=== PATIENT | female | born 1955 | race African-American/Black ===

== ENCOUNTER 2017-11-13 20:23 | Inpatient (IN) | payer MEDICARE, MEDICAID ==
[2017-11-13 21:02] LABS: #Basophils 0.1 thou/uL (0.0-0.2); #Lymphocytes 0.8 thou/uL (1.20-3.40); #Monocytes 0.4 thou/uL (0.11-0.59); #Neutrophils 4.1 thou/uL (1.40-6.50); %Basophils 1.1 % (0.0-1.0); %Eosinophils 0.2 % (0.0-10.0); %Lymphocytes 15.1 % (21.0-51.0); %Monocytes 7.7 % (0.0-10.0); %Neutrophils 75.9 % (42.0-75.0); Hemoglobin 9.3 g/dL (12.0-16.0); Mean Corpuscular HGB CONC 33.7 g/dL (32.0-36.0); Mean Corpuscular Hemoglobin 28.5 pg (27.0-31.0); Mean Corpuscular Volume 84.5 fl (81.0-99.0); Mean Platelet Volume 7.8 fL (7.4-10.4); Platelet Count 142 thou/uL (130-400); RBC Distribution Width 13.8 % (11.5-14.5); Red Blood Cell (RBC) Count 3.28 mill/uL (4.20-5.40); White Blood Cell (WBC) Count 5.4 thou/uL (4.8-10.8)
[2017-11-13 21:21] LABS: ALT (SGPT) 12 U/L (8-55); AST (SGOT) 18 U/L (5-34); Albumin 3.7 g/dL (3.4-4.8); Alkaline Phosphatase 46 U/L (40-150); Anion Gap 13 mmol/L (10-20); BUN (Urea Nitrogen) 33 mg/dL (9.8-20.1); Bilirubin, Total 0.6 mg/dL (0.2-1.2); Calc. Creatinine Clearance 0 mL/min (70-130); Carbon Dioxide 21 mmol/L (23-31); Chloride 105 mmol/L (98-107); Estimated GFR-MDRD 31; Globulin 3.9 g/dL (2.4-3.5); Glucose 109 mg/dL (80-115); Potassium 3.3 mmol/L (3.5-5.1); Protein, Total 7.6 g/dL (6.0-8.3); Sodium 136 mmol/L (136-145)
--- NOTE | 2017-11-13 21:52 | RAD ---
AP VIEW CHEST: Date: 11/13/17 INDICATION: History of sore throat. COMPARISON: Prior exam dated 12/13/13. IMPRESSION: Air space opacity within the left lower lobe obscuring the left hemidiaphragm, suspicious for left lo wer lobe pneumonia. Recommend 2 view chest radiograph. Right lung is clear. Osseous structures unchan ged. POS: MYRTLE
[2017-11-14] MEDS ORDERED: Azithromycin 500 MG VIAL ONE
[2017-11-14] MEDS ORDERED: Ondansetron ODT 4 MG TAB SL PRN (04:09)
[2017-11-14] MEDS ORDERED: Acetaminophen 325 MG TAB PO PRN (04:09)
[2017-11-14] MEDS ORDERED: Ondansetron HCl/PF 4 MG/2 ML Vial IVP PRN (04:09)
[2017-11-14] MEDS ORDERED: Sodium Chloride 0.9% 1,000 ML IV SCH (04:09)
[2017-11-14 04:18] VITALS: BMI 30.7
[2017-11-14] MEDS: Potassium Chloride 20 MEQ TAB PO SCH ×2 (09:15→14:04)
[2017-11-14] MEDS: Sodium Chloride 0.9% 1,000 ML IV SCH ×2 (09:16→15:56)
[2017-11-14] MEDS ORDERED: cefTRIAXone\\ROCEPHIN 2 GM in Sodium Chloride 0.9% 100 ML IVPB SCH (10:00)
[2017-11-14 16:30] LABS: Anion Gap 7 mmol/L (10-20); BUN (Urea Nitrogen) 25 mg/dL (9.8-20.1); Calc. Creatinine Clearance 65 mL/min (70-130); Calcium 8.4 mg/dL (7.8-10.44); Carbon Dioxide 22 mmol/L (23-31); Chloride 113 mmol/L (98-107); Estimated GFR-MDRD 53; Glucose 97 mg/dL (80-115); Potassium 3.9 mmol/L (3.5-5.1); Sodium 138 mmol/L (136-145)
[2017-11-14] MEDS: cefTRIAXone\\ROCEPHIN 2 GM in Sodium Chloride 0.9% 100 ML IVPB SCH (22:13)
[2017-11-14] MEDS: Azithromycin 500 MG in Sodium Chloride 0.9% 250 ML 250 ML IVPB SCH (23:25)
[2017-11-15] MEDS: Sodium Chloride 0.9% 1,000 ML IV SCH ×3 (04:01→17:25)
[2017-11-15 04:58] LABS: #Eosinphils 0.1 thou/uL (0.0-0.7); #Monocytes 0.3 thou/uL (0.11-0.59); %Basophils 0.3 % (0.0-1.0); %Eosinophils 1.5 % (0.0-10.0); %Lymphocytes 30.1 % (21.0-51.0); %Monocytes 8.6 % (0.0-10.0); %Neutrophils 59.5 % (42.0-75.0); Mean Corpuscular HGB CONC 32.7 g/dL (32.0-36.0); Mean Corpuscular Hemoglobin 27.9 pg (27.0-31.0); Mean Corpuscular Volume 85.5 fl (81.0-99.0); Mean Platelet Volume 8.1 fL (7.4-10.4); Platelet Count 133 thou/uL (130-400); RBC Distribution Width 13.9 % (11.5-14.5); Red Blood Cell (RBC) Count 2.86 mill/uL (4.20-5.40); White Blood Cell (WBC) Count 3.3 thou/uL (4.8-10.8)
[2017-11-15 05:08] LABS: Anion Gap 9 mmol/L (10-20); BUN (Urea Nitrogen) 19 mg/dL (9.8-20.1); Calc. Creatinine Clearance 82 mL/min (70-130); Calcium 8.5 mg/dL (7.8-10.44); Carbon Dioxide 19 mmol/L (23-31); Chloride 116 mmol/L (98-107); Estimated GFR-MDRD 70; Glucose 83 mg/dL (80-115); Potassium 4.2 mmol/L (3.5-5.1); Sodium 140 mmol/L (136-145)
--- NOTE | 2017-11-15 07:38 | HP ---
DATE OF ADMISSION: 11/13/2017 CHIEF COMPLAINT: Cough, fever, sore throat. HISTORY OF PRESENT ILLNESS: Ms. Martin is a 62-year-old -[place] female with past medical his tory of hypertension who came because of cough, fever, shortness of breath, sore throat and congestio n started 2 days prior to the admission. The cough is productive with yellow sputum. No shortness o f breath, no chest pain, no headache, no dizziness. The patient has been taking her blood pressure m edications. In the ER, the patient was evaluated and found to have pneumonia, left lower lobe, but s he was also hypotensive, systolic blood pressure in the 90s. The patient received IV fluid bolus. A ctually her systolic blood pressure was 86, it improved to more than 90 systolic after fluid bolus. The patient also received Rocephin and Zithromax for pneumonia and admitted for further evaluation an d management. PAST MEDICAL HISTORY: 1. Hypertension. 2. Hyperlipidemia. 3. History of acute kidney injury. 4. Anemia of chronic disease. PAST SURGICAL HISTORY: Nothing significant. CURRENT MEDICATIONS: Lisinopril/hydrochlorothiazide 20/12.5 daily. ALLERGIES: NKDA. FAMILY HISTORY: Nothing of interest. SOCIAL HISTORY: The patient lives with family. No history of smoking. No history of alcohol. REVIEW OF SYSTEMS: Unremarkable except for the cough and fever. PHYSICAL EXAMINATION: GENERAL: The patient is alert, awake, oriented x3. VITAL SIGNS: Temperature 100.6, pulse 79, respirations 20, blood pressure 100/60. HEENT: Normocephalic, atraumatic. Pupils equal and reactive to light. Nasopharynx is pale and dry. Hard and soft palate, no lesions. SKIN: Skin turgor decreased. NECK: Supple. No JVD. LUNGS: Breath sounds diminished bilaterally. Percussion not dull bilaterally. Crackles present at left base. No rales, no rhonchi, no wheezing. HEART: S1, S2 regular. ABDOMEN: Soft, no distention, no tenderness. Normal bowel sounds present. RECTAL: Deferred. CENTRAL NERVOUS SYSTEM: No focal deficit. LABORATORY AND X-RAY FINDINGS: CBC shows WBC of 5 5, hemoglobin 9.3, hematocrit 27, and platelets 14 2. Metabolic panel: Sodium 136, potassium 3.3, chloride 106, CO2 29, urea nitrogen 33, creatinine 1 .9, glucose 109. Chest x-ray shows infiltrate left lower lobe. There is air space opacity within th e left lower lobe obscuring the left hemidiaphragm. EKG shows normal sinus rhythm, no acute ST-T wav e changes seen. ASSESSMENT: 1. Possible pneumonia, left lower lobe. 2. Hypotension. 3. Acute kidney injury. 4. Hypokalemia. 5. Chronic anemia. PLAN: 1. Vital signs q.4 hours. 2. Activity: As tolerated. 3. Allergies: NKDA. 4. IV fluids with normal saline 100 mL per hour. 5. Rocephin 2 grams IV piggyback daily, Zithromax 500 mg IV piggyback daily. 6. Hold lisinopril. 7. KCl replacement.
[2017-11-15] MEDS ORDERED: Sodium Chloride 0.9% 10 ML ONE (21:03)
[2017-11-15] MEDS: cefTRIAXone\\ROCEPHIN 2 GM in Sodium Chloride 0.9% 100 ML IVPB SCH (22:50)
[2017-11-16] MEDS: Azithromycin 500 MG in Sodium Chloride 0.9% 250 ML 250 ML IVPB SCH (00:01)
[2017-11-16 08:02] VITALS: BP 119/71; TEMP 98.1
== END 2017-11-16 09:46 | disposition home or self-care (01) | DRG 194 ==
LOC: ERS 20:23 → 2SW 23:48 → 2NO 11-15 11:13
PROVIDERS: ADMIT Internal Medicine; ATTEND Internal Medicine
DX: J18.9 Pneumonia, unspecified organism (principal); N17.9 Acute kidney failure, unspecified; I10 Essential (primary) hypertension; E78.5 Hyperlipidemia, unspecified; D63.8 Anemia in other chronic diseases classified elsewhere; E87.6 Hypokalemia; I95.9 Hypotension, unspecified
CPT/HCPCS: 36415; 71045; 80048; 80053; 82274; 83605; 85025; 87040; 87081; 87430; 93005; 96361; 96365; 96367; A4216; J0456; J0696; J7050

== ENCOUNTER 2019-07-23 13:56 | Emergency (ER) | payer MEDICARE, MEDICAID ==
--- NOTE | 2019-07-23 15:07 | RAD ---
XR Elbow Rt 4 View STANDARD INDICATION: Fall with elbow pain FINDINGS: Bones: No acute fracture or subluxation is evident.. Joints: No joint capsular distention. No subluxation demonstrated. There is mild osteoarthrosis of th e right elbow joint. Soft tissues: No radiopaque foreign body is evident. IMPRESSION: No acute osseous abnormality.
--- NOTE | 2019-07-23 15:07 | RAD ---
XR Shoulder Rt 3 View STANDARD: 07/23/2019 2:26 PM CLINICAL INDICATION: Fall with right shoulder pain. COMPARISON: None. FINDINGS: Bones: There is diffuse osteopenia. No acute fracture or subluxation demonstrated. Glenohumeral joint: There is moderate glenohumeral joint osteoarthrosis AC joint: Moderate AC joint osteoarthrosis Visualized lung: Clear. Soft tissues: Within normal limits. IMPRESSION: No acute osseous abnormality.
--- NOTE | 2019-07-23 15:08 | RAD ---
XR Knee Lt 4 View STANDARD: 07/23/2019 2:26 PM CLINICAL INDICATION: Fall with left knee pain COMPARISON: None. FINDINGS: Bones: No acute fracture is demonstrated. Joints: There is severe osteoarthrosis of the left knee there is mild joint capsular distention. Soft Tissue: No acute abnormality.. IMPRESSION: No acute osseous abnormality..
--- NOTE | 2019-07-23 15:08 | RAD ---
XR Tib Fib Lt Leg 2 View INDICATION: Fall with left foreleg pain FINDINGS: Bones: No acute fracture or subluxation is evident. Joints: No acute abnormality. Soft tissues: No radiopaque foreign body is evident. IMPRESSION: No acute osseous abnormality.
[2019-07-23] MEDS ORDERED: Morphine 4 MG/ML VIAL ONE (15:48)
[2019-07-23] MEDS ORDERED: Ketorolac Tromethamine 30 MG/ML VIAL ONE (15:49)
== END 2019-07-23 17:35 | disposition home or self-care (01) ==
LOC: ERS 13:56
DX: M25.562 Pain in left knee (principal); M25.521 Pain in right elbow; M25.511 Pain in right shoulder; I10 Essential (primary) hypertension; M06.9 Rheumatoid arthritis, unspecified; Z79.899 Other long term (current) drug therapy
CPT/HCPCS: 96374; 96375; J1885; J2270

== ENCOUNTER 2021-03-22 11:53 | Observation (INO) | payer MEDICAID, MEDICARE ==
[2021-03-22 12:40] LABS: Hemoglobin 9.9 g/dL (12.0-16.0); Mean Corpuscular HGB CONC 33.3 g/dL (32.0-36.0); Mean Corpuscular Hemoglobin 28.2 pg (27.0-31.0); Mean Corpuscular Volume 84.9 fL (78.0-98.0); Mean Platelet Volume 9.5 fL (7.4-10.4); Platelet Count 214 thou/uL (130-400); RBC Distribution Width 13.7 % (11.5-14.5); Red Blood Cell (RBC) Count 3.51 mill/uL (4.20-5.40); White Blood Cell (WBC) Count 3.3 thou/uL (4.8-10.8)
[2021-03-22 13:01] LABS: Band 4 % (5-11); Lymphocytes 20 % (21-51); MDiff Complete? YES; Manual Diff?? YES; Metamyelocyte 1 % (0-0); Monocytes 4 % (0-10); Neutrophil 70 % (42-75); Platelet Morphology Comment Appears Adequate; Polychromasia SLIGHT = 2-3 cells (100X) (0-2/hpf)
[2021-03-22 14:23] LABS: Albumin 3.5 g/dL (3.4-4.8)
[2021-03-22 14:24] LABS: Chloride 105 mmol/L (98-107); Potassium 3.9 mmol/L (3.5-5.1); Sodium 137 mmol/L (136-145)
[2021-03-22 14:25] LABS: Calcium 9.6 mg/dL (7.8-10.44); Glucose 96 mg/dL (80-115)
[2021-03-22 14:26] LABS: Globulin 4.4 g/dL (2.4-3.5); Protein, Total 7.9 g/dL (5.8-8.1)
[2021-03-22 14:27] LABS: Anion Gap 18 mmol/L (10-20); Bilirubin, Total 0.3 mg/dL (0.2-1.2); Carbon Dioxide 18 mmol/L (23-31)
[2021-03-22 14:28] LABS: Alkaline Phosphatase 44 U/L (40-110)
[2021-03-22 14:29] LABS: Calc. Creatinine Clearance 0 mL/min (70-130)
[2021-03-22 14:30] LABS: BUN (Urea Nitrogen) 61 mg/dL (9.8-20.1)
[2021-03-22 14:31] LABS: ALT (SGPT) 11 U/L (8-55); AST (SGOT) 25 U/L (5-34)
[2021-03-22] MEDS ORDERED: Acetaminophen 325 MG TAB ONE (14:50)
[2021-03-22] MEDS ORDERED: Ondansetron ODT 4 MG TAB PO PRN (15:57)
[2021-03-22] MEDS ORDERED: Acetaminophen 325 MG TAB PO PRN (15:57)
[2021-03-22] MEDS ORDERED: Ondansetron PF 4 MG/2 ML Vial IVP PRN (15:57)
[2021-03-22] MEDS ORDERED: Docusate 100 MG CAP PO PRN (15:59)
[2021-03-22] MEDS ORDERED: traMADol HCl 50 MG TAB PO PRN (15:59)
[2021-03-22 16:32] LABS: Iron 43 ug/dL (50-170); Iron Binding Capacity, Total 204 mcg/dL (265-497); Magnesium 1.9 mg/dL (1.6-2.6)
[2021-03-22 16:51] LABS: Ferritin 478.5 ng/mL (10-291); Thyroid Stimulating Hormone 0.4497 uIU/mL (0.35-4.94)
[2021-03-22] MEDS ORDERED: hydrALAZINE 20 MG/ML VIAL SLOW IVP PRN (17:05)
[2021-03-22 20:44] VITALS: BMI 30.4
[2021-03-22 21:45] LABS: SARS-CoV-2 NAA Rapid Test DETECTED (NotDetected)
[2021-03-23] MEDS: Sodium Bicarbonate 75 MEQ in Sodium Chloride 0.45% 1,000 ML IV SCH ×2 (01:22→14:57)
[2021-03-23 06:06] LABS: Anion Gap 13 mmol/L (10-20); BUN (Urea Nitrogen) 42 mg/dL (9.8-20.1); Calc. Creatinine Clearance 59 mL/min (70-130); Calcium 9.4 mg/dL (7.8-10.44); Carbon Dioxide 21 mmol/L (23-31); Cardiac Risk 4.6 (Less than 4.5); Chloride 111 mmol/L (98-107); Cholesterol 129 mg/dl (< 200 Desired); Glucose 88 mg/dL (80-115); HDL Cholesterol 28 mg/dL (>60 Neg Risk); LDL Cholesterol, Calculated 79 mg/dL; Potassium 3.9 mmol/L (3.5-5.1); Sodium 141 mmol/L (136-145); Triglycerides 109 mg/dL (Less than 150)
[2021-03-23 06:13] LABS: Band 1 % (5-11); Hemoglobin 9.3 g/dL (12.0-16.0); Hypochromia SLIGHT = 6-15 cells (100X) (0-5/hpf); Lymphocytes 26 % (21-51); MDiff Complete? YES; Mean Corpuscular HGB CONC 34.8 g/dL (32.0-36.0); Mean Corpuscular Hemoglobin 29.6 pg (27.0-31.0); Mean Corpuscular Volume 84.9 fL (78.0-98.0); Mean Platelet Volume 8.4 fL (7.4-10.4); Monocytes 2 % (0-10); Neutrophil 71 % (42-75); Platelet Count 237 thou/uL (130-400); Platelet Morphology Comment Appears Adequate; RBC Distribution Width 13.6 % (11.5-14.5); Red Blood Cell (RBC) Count 3.15 mill/uL (4.20-5.40); White Blood Cell (WBC) Count 2.6 thou/uL (4.8-10.8)
[2021-03-23] MEDS: Ferrous Sulfate 325 MG TAB PO SCH (08:29)
[2021-03-23 11:15] LABS: Bacteria/HPF None Seen HPF (None Seen); Bilirubin Negative (Negative); Blood, Urine Negative (Negative); Clarity Clear (Clear); Glucose, Urine (Dipstick) Normal (Negative); Ketone, Urine Negative (Negative); Leukocyte 25 Leu/uL (Negative); Nitrite Negative (Negative); Protein, Urine (Dipstick) 10 mg/dL (Neg-Trace); RBC/HPF None Seen HPF (0-3); Specific Gravity, Urine 1.014 (1.002-1.036); Squamous Epithelial 0-3 HPF (0-3); Urobilinogen Normal mg/dL (Less than 2); WBC/HPF 0-3 HPF (0-3); pH, Urine 5.5 (5.0-9.0)
[2021-03-23 11:21] LABS: Urine Culture Reflex Yes Yes
[2021-03-23 12:26] LABS: Creatinine, Urine 73.87 mg/dL (47-110)
[2021-03-23] MEDS ORDERED: Ascorbic Acid 500 mg Chewable Tablet PO SCH (12:45)
[2021-03-23] MEDS ORDERED: Zinc Sulfate 220 MG CAP PO SCH (12:45)
[2021-03-23] MEDS ORDERED: Enoxaparin Sodium 40 MG/0.4 ML SYRINGE SC SCH ×3 (13:00→21:00)
[2021-03-24] MEDS: Sodium Bicarbonate 75 MEQ in Sodium Chloride 0.45% 1,000 ML IV SCH (02:33)
[2021-03-24 05:49] LABS: #Eosinphils 0.1 thou/uL (0.0-0.7); #Lymphocytes 0.8 thou/uL (1.20-3.40); #Monocytes 0.2 thou/uL (0.11-0.59); #Neutrophils 1.4 thou/uL (1.40-6.50); %Basophils 0.8 % (0.0-1.0); %Eosinophils 2.6 % (0.0-10.0); %Lymphocytes 32.2 % (21.0-51.0); %Monocytes 8.9 % (0.0-10.0); %Neutrophils 55.5 % (42.0-75.0); Hemoglobin 8.5 g/dL (12.0-16.0); Mean Corpuscular HGB CONC 32.7 g/dL (32.0-36.0); Mean Corpuscular Hemoglobin 27.9 pg (27.0-31.0); Mean Corpuscular Volume 85.1 fL (78.0-98.0); Mean Platelet Volume 8.2 fL (7.4-10.4); Platelet Count 250 thou/uL (130-400); RBC Distribution Width 13.5 % (11.5-14.5); Red Blood Cell (RBC) Count 3.05 mill/uL (4.20-5.40); White Blood Cell (WBC) Count 2.6 thou/uL (4.8-10.8)
[2021-03-24 06:11] LABS: Anion Gap 12 mmol/L (10-20); BUN (Urea Nitrogen) 17 mg/dL (9.8-20.1); Calc. Creatinine Clearance 77 mL/min (70-130); Calcium 8.9 mg/dL (7.8-10.44); Carbon Dioxide 27 mmol/L (23-31); Chloride 106 mmol/L (98-107); Glucose 88 mg/dL (80-115); Potassium 3.6 mmol/L (3.5-5.1); Sodium 141 mmol/L (136-145)
[2021-03-24 08:15] VITALS: BP 119/62; TEMP 98.3
[2021-03-24] MEDS ORDERED: Zinc Sulfate 220 MG CAP PO SCH (09:00)
[2021-03-24] MEDS ORDERED: Ascorbic Acid 500 mg Chewable Tablet PO SCH (09:00)
[2021-03-24] MEDS ORDERED: Enoxaparin Sodium 40 MG/0.4 ML SYRINGE SC SCH (09:00)
[2021-03-24] MEDS: Ferrous Sulfate 325 MG TAB PO SCH (09:32)
== END 2021-03-24 12:49 | disposition home or self-care (01) ==
LOC: ERS 11:53 → ERHOLD 15:29 → 3SE 20:22 → 2SW 03-23 00:30
PROVIDERS: ADMIT Internal Medicine; ATTEND Nurse Practitioner Acute Care
DX: M48.061 Spinal stenosis, lumbar region without neurogenic claudication (principal); M48.07 Spinal stenosis, lumbosacral region; M17.0 Bilateral primary osteoarthritis of knee; R55 Syncope and collapse; U07.1 COVID-19; G89.29 Other chronic pain; I10 Essential (primary) hypertension; E86.0 Dehydration; D50.9 Iron deficiency anemia, unspecified; E87.2 Acidosis; N17.9 Acute kidney failure, unspecified; N14.1 Nephropathy induced by other drugs, medicaments and biological substances; T39.395A Adverse effect of other nonsteroidal anti-inflammatory drugs [NSAID], initial encounter; T46.4X5A Adverse effect of angiotensin-converting-enzyme inhibitors, initial encounter; I08.3 Combined rheumatic disorders of mitral, aortic and tricuspid valves; D72.819 Decreased white blood cell count, unspecified; N20.0 Calculus of kidney; Z88.8 Allergy status to other drugs, medicaments and biological substances; Z79.899 Other long term (current) drug therapy
CPT/HCPCS: 71045; 72072; 72100; 72131; 73564 ×2; 80048 ×2; 80061; 81001; 82570; 82728; 83540; 83550; 83735; 84156; 84300; 84484; 84540; 85025 ×2; 87086; 93005; 93306; 93880; 96372 ×2; 97139 ×4; 99285; G0378 ×4; U0002; 36415; 80053; 84443; J1650